=== PATIENT | female | born 1955 ===

== ENCOUNTER 2017-06-01 20:47 | Emergency (ER) | payer MEDICARE, MEDICAID ==
[2017-06-01] MEDS ORDERED: oxyCODONE/Acetamin 5/325 MG* TAB PO ONE (23:58)
[2017-06-02] MEDS ORDERED: Penicillin VK TAB* 250 MG PO ONE (01:42)
--- NOTE | 2017-06-02 01:44 | ED ---
Throat Pain/Nasal Congestion - HPI Summary HPI Summary: 61F presents with facial swelling for three days. She states a week ago she had dental pain and went to the ER and was given pain medication but no antibiotic. She states that she has noticed swelling on the left side of her face that is increasing. She does not have a dentist. She denies any chest pain, SOB, or difficulty swallowing. She has been taking tyenlol for the pain without relief. She states that her one tooth does hurt her. [place] She is not DM. She does smoke. She denies any fever. - History of Current Complaint Chief Complaint: EDFacialInjury Time Seen by Provider: 06/01/17 23:47 - Allergies/Home Medications Allergies/Adverse Reactions: Allergies Allergy/AdvReac Type Severity Reaction Status Date / Time Iodide Allergy Swelling Verified 06/01/17 20:50 PMH/Surg Hx/FS Hx/Imm Hx Endocrine/Hematology History: Denies: Hx Anticoagulant Therapy, Hx Diabetes Cardiovascular History: Reports: Hx Hypertension Infectious Disease History: No Infectious Disease History: Denies: Traveled Outside the [place] in Last 30 Days - Family History Known Family History: Positive: Cardiac Disease - Social History Alcohol Use: None Substance Use Type: Reports: None Smoking Status (MU): Heavy Every Day Tobacco Smoker Review of Systems Negative: Fever Positive: Dental Pain, Other - left sided facial swelling Negative: Chest Pain Negative: Shortness Of Breath All Other Systems Reviewed And Are Negative: Yes Physical Exam Triage Information Reviewed: Yes Vital Signs On Initial Exam: Initial Vitals Temp Pulse Resp BP Pulse Ox 97.5 F 95 16 149/93 99 06/01/17 20:51 06/01/17 20:51 06/01/17 20:51 06/01/17 20:51 06/01/17 20:51 Vital Signs Reviewed: Yes Appearance: Positive: Pain Distress Skin: Positive: Warm, Dry Head/Face: Positive: Other - swelling noted along jaw line on left side of face Eyes: Positive: Normal, EOMI, SHITAL, Conjunctiva Clear ENT: Positive: Normal ENT inspection, Pharynx normal, TMs normal Dental: Positive: Percussion Tenderness @ - 20, Abscess @ - 20, Other - no submandibular tenderness Neck: Positive: Supple, Nontender, No Lymphadenopathy Respiratory/Lung Sounds: Positive: Clear to Auscultation, Breath Sounds Present Cardiovascular: Positive: Normal, RRR Procedures - Incision and Drainage Site: dental Anesthesia: Topical Instrument(s): Needle Diagnostics - Vital Signs Vital Signs Temp Pulse Resp BP Pulse Ox 06/02/17 00:04 16 06/02/17 00:02 86 141/79 99 06/02/17 00:01 81 97 06/01/17 23:05 97 F 94 16 162/91 100 06/01/17 21:56 98.4 F 87 16 157/86 97 06/01/17 20:51 97.5 F 95 16 149/93 99 - Laboratory Lab Statement: Any lab studies that have been ordered have been reviewed, and results considered in the medical decision making process. EENT Course/Dx - Course Course Of Treatment: 61F presents with facial swelling for three days. She states a week ago she had dental pain and went to the ER and was given pain medication but no antibiotic. She states that she has noticed swelling on the left side of her face that is increasing. She does not have a dentist. She denies any chest pain, SOB, or difficulty swallowing. She has been taking tyenlol for the pain without relief. She states that her one tooth does hurt her. tender to tooth 20 with abscess felt. drained with needle and large amount of pus from the abscess. placed on antibiotic and told to follow up with a dentist. patient understands and agrees with plan. - Differential Diagnoses Differential Diagnoses: Dental Abscess, Dental Caries, Foreign Body - Diagnoses Provider Diagnoses: Dental abscess Discharge - Discharge Plan Condition: Good Disposition: HOME Prescriptions: Penicillin VK TAB* [Penicillin VK 250 mg Tab*] 500 mg PO QID #26 tab oxyCODONE/Acetamin 5/325 MG* [Percocet 5/325 TAB*] 1 tab PO Q6H PRN #8 tab MDD 4 PRN Reason: Pain Patient Education Materials: Dental Abscess (ED) Referrals: No Primary Care Phys,NOPCP [Primary Care Provider] - Additional Instructions: Take antibiotics: 4 times a day for 7 days, first dose given in ED Use ibuprofen every 6 hours and narcotic for break through pain at night Avoid hard, crunchy food until seen by dentist Follow up with dentist as soon as possible Return to ED if develop fever, shortness of breath, pain with eye movement or swelling around eye Images - Images Dental: 1 - dental abscess
[2017-06-02 02:11] VITALS: BP 154/72
== END 2017-06-02 02:11 | disposition home or self-care (01) ==
LOC: ED 20:47
DX: K04.7 Periapical abscess without sinus (principal)
CPT/HCPCS: 99282; A9270-GY